=== PATIENT | female | born 1970 | race Caucasian/White ===

== ENCOUNTER → 2020-12-31 | Outpatient (CLI) | payer BC, OTHER ==
[~2020-12-31] MED LIST: AMARYL4 MG PO; BUMETANIDE1 MG PO; CATAPRES 0.1MG0.1 MG PO; COREG 25MG TAB25 MG PO; COZAAR100 MG PO; GLUCOPHAGE500 MG PO; JANUVIA 100 MG100 MG PO; LEVAQUIN500 MG PO
== END ==
LOC: KOH-I 16:14
DX: M25.511 Pain in right shoulder (principal)
CPT/HCPCS: 73030

== ENCOUNTER 2021-09-29 12:41 | Emergency (ER) | payer BC ==
[~2021-09-29] VITALS: Ht 177.8 cm; Wt 98.9 kg
== END 2021-09-29 15:32 | disposition home or self-care (01) ==
LOC: ER1 12:41
DX: U07.1 COVID-19 (principal); Z23 Encounter for immunization; E11.9 Type 2 diabetes mellitus without complications; I10 Essential (primary) hypertension; Z88.0 Allergy status to penicillin
CPT/HCPCS: 71045; 99284; M0245